=== PATIENT | male | born 1960 | race Caucasian/White ===

== ENCOUNTER → 2024-03-09 | Outpatient (CLI) | payer MEDICARE, MEDICAID, SELFPAY ==
--- NOTE | 2024-03-09 16:40 | EKG_ITS ---
[facility] Test Date: 2024-03-09 Pat Name: DONI LUGO Department: Room: - Gender: Male [employer] Apprentice: LORIN : 1960 Requested By: Gonzalo Kerr Order Number: [id number] Reading MD: Gonzalo Kerr Measurements Intervals [place] Rate: 71 P: 39 [place]: 188 QRS: 66 QRSD: 126 T: 14 QT: 405 QTc: 441 Interpretive Statements SINUS RHYTHM MODERATE INTRAVENTRICULAR CONDUCTION DELAY Compared to ECG 07/20/2019 10:55:54 No significant changes /[id number]
== END | disposition home or self-care (01) ==
PROVIDERS: PCP Family Medicine; Referring Provider Family Medicine; Visit Provider Family Medicine
DX: Z01.818 Encounter for other preprocedural examination (principal); H18.512 Endothelial corneal dystrophy, left eye
CPT/HCPCS: 93005